=== PATIENT | female | born 1985 | race African-American/Black ===

== ENCOUNTER 2021-05-28 16:58 | Emergency (ER) | payer MEDICAID ==
[~2021-05-28] VITALS: Ht 160 cm; Wt 78.0 kg
[2021-05-28 17:04] VITALS: BP 132/99
[2021-05-28] MEDS ORDERED: IPRATROPIUM BROMIDE (0.02%) 0.5MG/2.5ML NEB HHN STA (17:17)
[2021-05-28] MEDS ORDERED: ALBUTEROL (0.083%) 2.5MG/3ML NEB HHN STA (17:17)
[2021-05-28] MEDS ORDERED: METHYLPREDNISOLONE SOD SUCC 125 MG/2 ML VIAL IV STA (17:17)
== END 2021-05-28 18:58 | disposition left against medical advice (07) ==
LOC: ER 16:58
DX: J45.901 Unspecified asthma with (acute) exacerbation (principal); E03.9 Hypothyroidism, unspecified; Z98.890 Other specified postprocedural states
CPT/HCPCS: 94640; 96374; 99283; J2930; Z7610

== ENCOUNTER 2022-06-16 12:42 | Emergency (ER) | payer MEDICAID ==
[~2022-06-16] VITALS: Ht 165.1 cm; Wt 75.0 kg
[2022-06-16 13:29] VITALS: BP 133/75
== END 2022-06-16 14:54 | disposition left against medical advice (07) ==
LOC: ER 12:42
DX: Z53.21 Procedure and treatment not carried out due to patient leaving prior to being seen by health care provider (principal)

== ENCOUNTER 2022-06-19 01:01 | Emergency (ER) | payer MEDICAID ==
[~2022-06-19] VITALS: Ht 160 cm; Wt 79.0 kg
[2022-06-19 01:08] VITALS: BP 128/95
[2022-06-19] MEDS ORDERED: ALBUTEROL (0.083%) 2.5MG/3ML NEB HHN STA (02:21)
[2022-06-19] MEDS ORDERED: METHYLPREDNISOLONE SOD SUCC 125 MG/2 ML VIAL IV STA (02:21)
[2022-06-19] MEDS ORDERED: IPRATROPIUM BROMIDE (0.02%) 0.5MG/2.5ML NEB HHN STA (02:21)
[2022-06-19 03:22] LABS: CLARITY URINE TURBID (CLEAR); COLOR URINE YELLOW (YELLOW); KETONES URINE NEGATIVE (NEGATIVE); LEUKOCYTE ESTERASE URINE NEGATIVE (NEGATIVE); NITRITE URINE NEGATIVE (NEGATIVE); OCCULT BLOOD URINE NEGATIVE (NEGATIVE); PROTEIN URINE NEGATIVE (NEGATIVE); SPECIFIC GRAVITY URINE 1.015 (1.005-1.030)
[2022-06-19 03:48] LABS: BASOPHILS % 1.2 % (0.0-2.0); EOSINOPHILS % 6.9 % (0.0-5.0); HEMATOCRIT. 36.7 % (36.0-48.0); HEMOGLOBIN. 11.7 g/dL (12.0-16.0); LYMPHOCYTES % 31.9 % (20.0-50.0); MEAN CORPUSCULAR HEMOGLOBIN 21.2 pg (28.0-32.0); MEAN CORPUSCULAR VOLUME 66.2 fL (81.0-99.0); MEAN PLATELET VOLUME 8.4 fl (7.4-10.4); MONOCYTES % 8.8 % (2.0-8.0); NEUTROPHILS % 51.2 % (40.0-76.0); PLATELET 331 x1000/uL (130-400); RED BLOOD CELL COUNT 5.54 mill/uL (4.2-5.4); RED CELL DISTRIBUTION WIDTH 14.4 % (11.6-14.6)
[2022-06-19 03:53] LABS: CHLORIDE 106 mEq/L (98-107)
[2022-06-19 03:57] LABS: HCG SCREEN NEGATIVE
[2022-06-19] MEDS ORDERED: P20 MT (05:31)
[2022-06-19] MEDS ORDERED: NITR-87 MT (05:31)
[2022-06-19 08:52] LABS: PLATELET ESTIMATE NORMAL
== END 2022-06-19 06:02 | disposition home or self-care (01) ==
LOC: ER 01:01
DX: J45.901 Unspecified asthma with (acute) exacerbation (principal); N39.0 Urinary tract infection, site not specified; E03.9 Hypothyroidism, unspecified; Z20.822 Contact with and (suspected) exposure to COVID-19
CPT/HCPCS: 36415; 71045; 80053; 81003; 81025; 83690; 84703; 85025; 87426; 87804; 94640; 96374; 99284; J2930; Z7610

== ENCOUNTER 2022-07-03 17:31 | Emergency (ER) | payer MEDICAID ==
[~2022-07-03] VITALS: Ht 160 cm; Wt 68.0 kg
[~2022-07-03 17:31] MED LIST: NITR-87 MT; P20 MT
[2022-07-03] MEDS ORDERED: SODIUM CHLORIDE 0.9% 1,000 ML IV ONE (18:00)
[2022-07-03 18:06] VITALS: BP 112/71
[2022-07-03 18:58] LABS: BASOPHILS % 0.7 % (0.0-2.0); EOSINOPHILS % 3.5 % (0.0-5.0); HEMATOCRIT. 34.3 % (36.0-48.0); HEMOGLOBIN. 10.8 g/dL (12.0-16.0); LYMPHOCYTES % 18.6 % (20.0-50.0); MEAN CORPUSCULAR VOLUME 66.6 fL (81.0-99.0); MEAN PLATELET VOLUME 8.2 fl (7.4-10.4); MONOCYTES % 7.9 % (2.0-8.0); NEUTROPHILS % 69.3 % (40.0-76.0); PLATELET 280 x1000/uL (130-400); RED BLOOD CELL COUNT 5.15 mill/uL (4.2-5.4); RED CELL DISTRIBUTION WIDTH 14.6 % (11.6-14.6)
[2022-07-03 19:06] LABS: CHLORIDE 104 mEq/L (98-107)
[2022-07-03 19:14] LABS: ETHANOL BLOOD < 10 mg/dL
[2022-07-03 19:29] LABS: HCG SCREEN NEGATIVE
[2022-07-03 19:44] LABS: PLATELET ESTIMATE NORMAL
== END 2022-07-03 20:15 | disposition home or self-care (01) ==
LOC: ER 18:01
DX: T50.905A Adverse effect of unspecified drugs, medicaments and biological substances, initial encounter (principal); J45.909 Unspecified asthma, uncomplicated; Z86.39 Personal history of other endocrine, nutritional and metabolic disease; Y92.9 Unspecified place or not applicable
CPT/HCPCS: 36415; 80048; 80307; 80320; 80329; 84703; 85025; 96360; 99283; J7030; G0480

== ENCOUNTER 2022-09-15 13:44 | Emergency (ER) | payer MEDICAID ==
[~2022-09-15] VITALS: Ht 165.1 cm; Wt 77.1 kg
[2022-09-15 14:27] LABS: BASOPHILS % 0.6 % (0.0-2.0); EOSINOPHILS % 0.6 % (0.0-5.0); HEMATOCRIT. 35.9 % (36.0-48.0); HEMOGLOBIN. 11.6 g/dL (12.0-16.0); LYMPHOCYTES % 15.2 % (20.0-50.0); MEAN CORPUSCULAR HEMOGLOBIN 21.5 pg (28.0-32.0); MEAN CORPUSCULAR VOLUME 66.4 fL (81.0-99.0); MEAN PLATELET VOLUME 8.6 fl (7.4-10.4); MONOCYTES % 7.4 % (2.0-8.0); NEUTROPHILS % 76.2 % (40.0-76.0); PLATELET 333 x1000/uL (130-400); RED CELL DISTRIBUTION WIDTH 13.9 % (11.6-14.6)
[2022-09-15 14:38] LABS: CHLORIDE 106 mEq/L (98-107)
[2022-09-15 14:42] LABS: CLARITY URINE CLEAR (CLEAR); COLOR URINE DARK YELLOW (YELLOW); KETONES URINE NEGATIVE (NEGATIVE); LEUKOCYTE ESTERASE URINE TRACE (NEGATIVE); NITRITE URINE POSITIVE (NEGATIVE); OCCULT BLOOD URINE NEGATIVE (NEGATIVE); PH URINE 6.5 (4.5-8.0); PROTEIN URINE NEGATIVE (NEGATIVE); SPECIFIC GRAVITY URINE 1.004 (1.005-1.030); UROBILINOGEN URINE 0.2 E.U./dL (0.2-1.0)
[2022-09-15 14:42] LABS: HCG SCREEN NEGATIVE
[2022-09-15] MEDS ORDERED: PHEN-815 MT (16:00)
[2022-09-15] MEDS ORDERED: ONDANSETRON 4MG ODT PO ONE (16:00)
[2022-09-15] MEDS ORDERED: IBUPROFEN 600MG TABLET PO ONE (16:00)
[2022-09-15] MEDS ORDERED: CEPH500T MT (16:00)
[2022-09-15 16:52] VITALS: BP 125/85
[2022-09-15 17:18] LABS: PLATELET ESTIMATE NORMAL
[2022-09-17 08:11] LABS: HIV SCREEN 4G Non Reactive (Non Reactive)
[2022-09-19 17:06] LABS: NEISSERIA GONORRHOEAE NAA Negative (Negative)
== END 2022-09-15 16:54 | disposition home or self-care (01) ==
LOC: ER 14:24
DX: N39.0 Urinary tract infection, site not specified (principal); J45.909 Unspecified asthma, uncomplicated
CPT/HCPCS: 36415; 80053; 81003; 84703; 85025; 87389; 87491; 87591; 99283; Q0162

== ENCOUNTER 2022-10-16 03:58 | Emergency (ER) | payer MEDICAID ==
[~2022-10-16] VITALS: Ht 157.5 cm; Wt 78.0 kg
[~2022-10-16 03:58] MED LIST changes: +CEPH500T MT; +PHEN-815 MT
[2022-10-16] MEDS ORDERED: IBUPROFEN 600MG TABLET PO STA (04:21)
[2022-10-16] MEDS ORDERED: SODIUM CHLORIDE 0.9% 1,000 ML IV ONE (04:30)
[2022-10-16] MEDS ORDERED: IBUPROFEN 600MG TABLET PO SCH (07:15)
[2022-10-16 07:42] LABS: BASOPHILS % 0.7 % (0.0-2.0); EOSINOPHILS % 0.9 % (0.0-5.0); LYMPHOCYTES % 20.4 % (20.0-50.0); MEAN CORPUSCULAR HEMOGLOBIN 20.1 pg (28.0-32.0); MEAN CORPUSCULAR VOLUME 65.7 fL (81.0-99.0); MEAN PLATELET VOLUME 8.3 fl (7.4-10.4); PLATELET 390 x1000/uL (130-400); RED BLOOD CELL COUNT 5.48 mill/uL (4.2-5.4); RED CELL DISTRIBUTION WIDTH 13.9 % (11.6-14.6)
[2022-10-16 07:47] LABS: CHLORIDE 104 mEq/L (98-107)
[2022-10-16 08:10] LABS: HCG SCREEN NEGATIVE
[2022-10-16 08:17] LABS: PLATELET ESTIMATE NORMAL
[2022-10-16 08:31] LABS: CLARITY URINE CLEAR (CLEAR); COLOR URINE YELLOW (YELLOW); KETONES URINE NEGATIVE (NEGATIVE); LEUKOCYTE ESTERASE URINE NEGATIVE (NEGATIVE); NITRITE URINE NEGATIVE (NEGATIVE); OCCULT BLOOD URINE NEGATIVE (NEGATIVE); PROTEIN URINE NEGATIVE (NEGATIVE); SPECIFIC GRAVITY URINE 1.005 (1.005-1.030); UROBILINOGEN URINE 0.2 E.U./dL (0.2-1.0)
[2022-10-16] MEDS ORDERED: CEFTRIAXONE SODIUM 500 MG/VIAL IV ONE (11:15)
[2022-10-16] MEDS ORDERED: AZITHROMYCIN 500 MG TABLET PO ONE (11:15)
[2022-10-16] MEDS ORDERED: METRONIDAZOLE 50MG/ML 1ML ORAL SYR(NEO) PO ONE (11:15)
[2022-10-16] MEDS ORDERED: METR-167 MT (11:15)
[2022-10-16] MEDS ORDERED: METRONIDAZOLE 500MG TABLET PO SCH (11:30)
[2022-10-16] MEDS ORDERED: CEFTRIAXONE 500MG in DEXTROSE 5% WATER 50ML IV SCH (11:45)
[2022-10-16 12:17] VITALS: BP 102/65
[2022-10-18 04:07] LABS: NEISSERIA GONORRHOEAE NAA Negative (Negative)
== END 2022-10-16 12:18 | disposition home or self-care (01) ==
LOC: ER 03:58
DX: N76.0 Acute vaginitis (principal); A64 Unspecified sexually transmitted disease; J45.909 Unspecified asthma, uncomplicated
CPT/HCPCS: 36415; 74176; 76830; 76856; 80053; 81003; 83690; 84703; 85025; 87210; 87491; 87591; 96361; 96365; 99285; J0696; J7030; J7060; Z7610

== ENCOUNTER 2023-01-03 14:32 | Emergency (ER) | payer MEDICAID ==
[~2023-01-03] VITALS: Ht 160 cm; Wt 76.4 kg
[~2023-01-03 14:32] MED LIST changes: +METR-167 MT
[2023-01-03 14:50] VITALS: O2SAT 100
[2023-01-03 15:29] LABS: CLARITY URINE CLEAR (CLEAR); COLOR URINE YELLOW (YELLOW); KETONES URINE NEGATIVE (NEGATIVE); LEUKOCYTE ESTERASE URINE NEGATIVE (NEGATIVE); NITRITE URINE NEGATIVE (NEGATIVE); OCCULT BLOOD URINE NEGATIVE (NEGATIVE); PH URINE 5.5 (4.5-8.0); PROTEIN URINE NEGATIVE (NEGATIVE); SPECIFIC GRAVITY URINE 1.005 (1.005-1.030); UROBILINOGEN URINE 0.2 E.U./dL (0.2-1.0)
[2023-01-03 15:38] LABS: EOSINOPHILS % 1.2 % (0.0-5.0); HEMATOCRIT. 34.6 % (36.0-48.0); LYMPHOCYTES % 10.8 % (20.0-50.0); MEAN CORPUSCULAR VOLUME 66.1 fL (81.0-99.0); MEAN PLATELET VOLUME 8.4 fl (7.4-10.4); MONOCYTES % 4.2 % (2.0-8.0); NEUTROPHILS % 82.8 % (40.0-76.0); PLATELET 344 x1000/uL (130-400); RED BLOOD CELL COUNT 5.23 mill/uL (4.2-5.4); RED CELL DISTRIBUTION WIDTH 14.5 % (11.6-14.6)
[2023-01-03 15:59] LABS: CHLORIDE 104 mEq/L (98-107)
[2023-01-03 17:50] VITALS: BP 119/81
[2023-01-03] MEDS ORDERED: HYDROCODONE/ACETAMINOPHEN 5/325MG TABLET PO STA (17:50)
[2023-01-03 19:27] LABS: PLATELET ESTIMATE NORMAL
[2023-01-03] MEDS ORDERED: METR-167 PO (19:36)
[2023-01-03] MEDS ORDERED: ACET-2708 PO (19:36)
[2023-01-03] MEDS ORDERED: BISM-77 PO (19:36)
[2023-01-03] MEDS ORDERED: ONDA4TAB50 PO (19:36)
[2023-01-03 20:04] VITALS: PULSE 102; RESP 18; TEMP 99
[2023-01-06 07:12] LABS: NEISSERIA GONORRHOEAE NAA Negative (Negative)
== END 2023-01-03 20:05 | disposition home or self-care (01) ==
LOC: ER 14:32
DX: K52.9 Noninfective gastroenteritis and colitis, unspecified (principal); N76.0 Acute vaginitis; J45.909 Unspecified asthma, uncomplicated; Z98.890 Other specified postprocedural states; Z86.39 Personal history of other endocrine, nutritional and metabolic disease
CPT/HCPCS: 87491; 87591; 80053; 81003; 81025; 83690; 85025; 87210; 36415; 74176; 99284; Z7610